=== PATIENT | female | born 1940 | race Caucasian/White ===

== ENCOUNTER 2018-03-26 05:04 | Inpatient (IN) ==
[2018-03-19 15:18] LABS: Appearance,Urine CLEAR; Bacteria,Urine 0 /hpf (0); Bilirubin,Urine NEG (NEG); Color,Urine YELLOW; Glucose,Urine (UA) NEGATIVE (NEG); Leukocyte Esterase,Urine 500 /uL (NEG); Mucus,Urine MOD /hpf (0); Protein,Urine NEG (NEG); Specific Gravity,Urine 1.015 (1.000-1.035); Urine Blood NEG mg/dL (<0.03); Urine Hyaline Cast 2 /lpf (0-2); Urine RBC 1 /hpf (0-1); Urine Squamous Epithelial Cell 3 /hpf (0-4); Urine Transitional Epi Cells < 1 /hpf (0-2); Urine WBC 19 /hpf (0-4); Urobilinogen,Urine NEG (NEG)
[2018-03-19 15:50] LABS: Basophils # (Auto) 0 K/mcL (0.0-0.3); Basophils % (Auto) 0.3 % (0.0-2.0); Eosinophils # (Auto) 0.2 K/mcL (0.0-0.7); Eosinophils % (Auto) 2.9 % (0.0-7.0); Granulocytes % (Auto) 73.2 % (38.0-78.0); Lymphocytes # (Auto) 1.2 K/mcL (1.5-4.8); Lymphocytes % (Auto) 16.1 % (15.5-49.0); Mean Cell Volume 97.5 fL (80.0-100.0); Mean Corpuscular HGB Conc 32.9 g/dL (31.0-36.0); Monocytes # (Auto) 0.6 K/mcL (0.1-0.9); Monocytes % (Auto) 7.5 % (1.0-12.0); Platelet Count 244 K/mcL (140-440); RBC 3.97 M/mcL (4.00-5.20); Red Cell Distribution Width 13.3 % (11.5-14.5)
[2018-03-19 16:04] LABS: Blood Urea Nitrogen 20 mg/dl (8-23)
[2018-03-26] MEDS ORDERED: ACETAMINOPHEN 500 MG TABLET PO SCH (07:00)
[2018-03-26] MEDS ORDERED: ceFAZolin 1 GM VIAL IV SCH (07:00)
[2018-03-26] MEDS ORDERED: CELECOXIB 200 MG CAPSULE PO SCH (07:00)
[2018-03-26] MEDS ORDERED: PREGABALIN 75 MG CAPSULE PO SCH (07:00)
[2018-03-26] MEDS ORDERED: LIDOCAINE HCL/PF 100 MG/5 ML SYRINGE IV ONE (07:25)
[2018-03-26] MEDS ORDERED: GLYCOPYRROLATE 0.2 MG/ML VIAL IV ONE (07:25)
[2018-03-26] MEDS ORDERED: PROPOFOL 200 MG/20 ML VIAL IV ONE (07:25)
[2018-03-26] MEDS ORDERED: KETAMINE 100 MG/ML ML IV ONE (07:25)
[2018-03-26] MEDS ORDERED: DEXAMETHASONE 10 MG/ML VIAL IV ONE (07:25)
[2018-03-26] MEDS ORDERED: fentaNYL 250 MCG/5 ML VIAL IV ONE (07:25)
[2018-03-26] MEDS ORDERED: ROPIVACAINE HCL/PF 30 ML VIAL IJ ONE (07:25)
[2018-03-26] MEDS ORDERED: ONDANSETRON 4 MG/2 ML VIAL IV ONE (07:25)
[2018-03-26] MEDS ORDERED: PHENYLEPHRINE 10 MG/ML VIAL IV ONE (07:25)
[2018-03-26] MEDS ORDERED: MIDAZOLAM 5 MG/5 ML VIAL IV ONE (07:25)
[2018-03-26] MEDS ORDERED: TRANEXAMIC ACID 1,000 MG/10 ML VIAL IV ONE ×2 (07:25→08:53)
[2018-03-26] MEDS ORDERED: METHOCARBAMOL 1,000 MG/10 ML VIAL IV PRN (07:55)
[2018-03-26] MEDS ORDERED: GENTAMICIN SULFATE 800 MG/20 ML VIAL IR ONE (07:55)
[2018-03-26] MEDS ORDERED: BENZOCAINE/MENTHOL 1 LOZENGE PO PRN ×2 (07:55→08:53)
[2018-03-26] MEDS ORDERED: LACTATED RINGERS 250 ML IV PRN (07:55)
[2018-03-26] MEDS ORDERED: FLUMAZENIL 0.1 MG/ML ML IV PRN (07:55)
[2018-03-26] MEDS ORDERED: NALOXONE HCL 0.4 MG/ML VIAL IV PRN (07:55)
[2018-03-26] MEDS ORDERED: MEPERIDINE 25 MG/ML SYRINGE IV PRN (07:55)
[2018-03-26] MEDS ORDERED: IPRATROPIUM/ALBUTEROL 3 ML AMPUL.NEB NEB PRN (07:55)
[2018-03-26] MEDS ORDERED: ONDANSETRON 4 MG/2 ML VIAL IV PRN ×2 (07:55→08:53)
[2018-03-26] MEDS ORDERED: fentaNYL 100 MCG/2 ML VIAL IV PRN (07:55)
[2018-03-26] MEDS ORDERED: LACTATED RINGERS 1,000 ML IV SCH (08:00)
[2018-03-26] MEDS ORDERED: BISACODYL 10 MG SUPP.RECT PR PRN (08:53)
[2018-03-26] MEDS ORDERED: POLYETHYLENE GLYCOL 3350 17 GM PACKET PO PRN (08:53)
[2018-03-26] MEDS ORDERED: HYDROCODONE/APAP 7.5/325MG TABLET PO PRN (08:53)
[2018-03-26] MEDS ORDERED: FLEETS ADULT ENEMA PR PRN (08:53)
[2018-03-26] MEDS ORDERED: MAGNESIUM HYDROXIDE 30 ML ORAL.SUSP PO PRN (08:53)
[2018-03-26] MEDS ORDERED: TEMAZEPAM 15 MG CAPSULE PO PRN (08:53)
--- NOTE | 2018-03-26 08:53 | Brief Operative Note ---
Date of procedure: 03/26/18 Pre-op diagnosis: Left shoulder dja rca Post-op diagnosis: same Procedure: left reverse tsa and bicep tendon tear Grafts/Implants: Yes Anesthesia: GETA Complications: none Surgeon: Mauri Coleman Reconciliation Analyst: Ramo Steward Estimated blood loss (cc): 50 Specimens Removed/Pathology: none sent Condition: stable Disposition: PACU
--- NOTE | 2018-03-26 10:02 | Operative Note ---
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 PROCEDURE: Left reverse total shoulder. SURGEON: Mauri Coleman M.D. LEARNING AND DEVELOPMENT ASSOCIATE: Ramo Steward PA-C. ANESTHESIA: General LMA anesthesia. COMPLICATIONS: None. DESCRIPTION OF PROCEDURE: The patient was brought to the operating room and put to sleep with general LMA anesthesia. Once asleep, the patient had the left shoulder sterilely prepped and draped in the usual sterile fashion. Once done, we then made a deltopectoral approach after a timeout had been performed and Ioban placed over the skin. We exposed the shoulder joint, retracting the deltoid laterally and preserving the cephalic vein. Once done, we then released the subscap and biceps tendon remnant, and this was repaired to the pec major. The biceps tendon was repaired to the pec major with #1 FiberWire with good repair. We then subluxed the humeral head after performing a capsule release of the inferior capsule and removing the spurs. We made the neck cut of the humerus using a humeral guide with 20 degrees of retroversion. Once cut, the bony fragment was removed. A protective plate on the head was placed, and this was subluxed posteriorly. We then performed a 360-degree capsule release around the glenoid using retractors and removing the labrum. We placed the pin centrally and then the guide was used to ream at 10 degrees of inclination and this prepared a nice bony bed. A central screw was then placed with the Metaglene 32 mm in length, a 6.5 mm screw centrally. The peripheral screws were 4.5 and they were 32, 36 and 36 in length. Good purchase achieved. We then placed a 36 mm ball with 2 mm of offset and 2 mm of eccentricity. Once done, we then tapped the humeral head into place, the press fit over the Metaglene. Once this was done, we broached up to the size of 11 on the stem. She had significant bone loss or osteopenia. Because of this soft bone, we did place cement in the distal portion of the canal with a neutral neck length. Our neutral poly liner seemed to be the appropriate thickness and tension with 1 mm of shuck on the shuck test. Once done, we then placed the cement down in the canal after irrigating and positioned the size 11 stem which was a porous ingrowth proximally, and we cemented the distal portion to hold this in place and bone grafted around the proximal portion prior to inserting the stem. Once this was pressed to the same level of the trial, we then waited for the cement to dry. Once dry, we then trialed the standard poly. This was the appropriate tension again, and we implanted the final implant. The final poly liner was placed. The patient tolerated this well without complication. Once the final implant was placed, we then reduced the shoulder and this gave good tension. We irrigated thoroughly and then closed the deltopectoral approach with #1 Stratafix and the skin was closed with #1 Stratafix and adhesive closure. The patient tolerated this well. A sterile bandage was applied and a sling was applied. RBBrett:fan Job ID: [id number] Doc ID: [id number] Mauri Coleman MD
--- NOTE | 2018-03-26 10:06 | XRay Report ---
HISTORY: Postop shoulder replacement FINDINGS: There is a well-positioned reverse shoulder prosthesis. No fracture is present and there are no abnormal soft tissue calcifications. Arthritis is present throughout the cervical and thoracic spine. IMPRESSION: Well-positioned left shoulder prosthesis Interpreted and Authenticated by: Jaswant Lovett 03/26/18
[2018-03-26] MEDS: CITALOPRAM 20 MG TABLET PO SCH (12:05)
[2018-03-26] MEDS: ZAFIRLUKAST 20 MG TABLET PO SCH ×2 (12:14→20:43)
[2018-03-26] MEDS: BENDAMUSTINE PO SCH (12:16)
[2018-03-26] MEDS: 0.45 % SODIUM CHLORIDE 1,000 ML IV SCH ×2 (12:16→19:02)
[2018-03-26] MEDS: DOCUSATE SODIUM 100 MG CAPSULE PO SCH ×2 (12:16→20:41)
[2018-03-26] MEDS: HYDROmorphone 2 MG TABLET PO PRN (13:06)
[2018-03-26] MEDS: 0.9 % SODIUM CHLORIDE 10 ML SYRINGE IV SCH ×2 (14:26→20:43)
[2018-03-26] MEDS: ceFAZolin 1 GM VIAL IV SCH ×2 (16:02→23:24)
[2018-03-26] MEDS: ACETAMINOPHEN 325 MG TABLET PO PRN (17:23)
[2018-03-26] MEDS: SULFAMETHOXAZOLE/TRIMETHOPRIM 1 TABLET PO SCH (20:40)
[2018-03-26] MEDS: FLUTICASONE/SALMETEROL 250/50 INHALER #14 INH SCH (20:41)
[2018-03-26] MEDS: SENNOSIDES 1 TABLET PO SCH (20:43)
[2018-03-27] MEDS: HYDROmorphone 2 MG TABLET PO PRN ×5 (02:26→21:33)
[2018-03-27] MEDS: HYDROmorphone 2 MG/ML VIAL IV PRN ×2 (02:27→04:06)
[2018-03-27] MEDS: 0.9 % SODIUM CHLORIDE 10 ML SYRINGE IV SCH ×3 (04:07→21:35)
--- NOTE | 2018-03-27 07:44 | Orthopedic Progress Note ---
Subjective Patient information: Note initiated : 03/27/18 at 7:43 am Service Date, if different from initiated Date: [] Patient: Janet Winn 77 y/o F admitted on 03/26/18 for Left Reverse Total Shoulder Arthroplasty with. Chief Complaint: Pt is stable this morning on post operative day 1 without any significant concerns or complaints. Patients vital signs have remained stable. Patients dressing is dry and is grossly intact from a neur ovascular and motor standpoint. Patients 10 point ROS is otherwise negative. [] Objective Vital signs: Vital Signs Temp Pulse Resp BP BP Pulse Ox 03/27/18 03:18 97.4 F 71 18 125/55 92 03/26/18 23:24 98.0 F 72 18 119/64 93 03/26/18 19:31 98.3 F 73 20 119/52 93 03/26/18 15:41 97.4 F 85 97 03/26/18 12:06 79 92/57 96 03/26/18 11:50 78 123/52 95 03/26/18 11:35 81 127/57 97 03/26/18 11:20 75 121/59 97 03/26/18 11:05 119/60 96 03/26/18 10:50 111/58 91 03/26/18 10:35 118/63 97 03/26/18 10:20 110/56 98 03/26/18 10:05 117/62 98 03/26/18 09:57 97.4 F 83 14 132/52 99 03/26/18 09:43 97.2 F 77 13 127/51 100 03/26/18 09:28 97.5 F 77 12 112/51 100 03/26/18 09:13 78 13 125/85 100 03/26/18 09:07 75 15 131/44 100 03/26/18 09:03 97.6 F 73 15 130/54 100 Intake and Output 03/26/18 03/27/18 03/27/18 21:59 05:59 13:59 Intake Total 1050 Output Total 250 1125 Balance -250 -75 Intake: IV 1000 Sodium Chloride 0.45% 1,000 ml 1000 @ 100 mls/hr IV .Q10H [facility] Rx#: [id number] Oral 50 Output: Void Amount 250 1125 Other: Urine Appearance Clear Urine Color Straw Urine Odor Strong Weight 210 lb 11.2 oz Intake & Output: Intake & Output 03/26/18 03/27/18 03/27/18 21:59 05:59 13:59 Intake Total 1050 Output Total 250 1125 Balance -250 -75 Weight 210 lb 11.2 oz Intake: IV 1000 Sodium Chloride 0.45% 1,000 ml 1000 @ 100 mls/hr IV .Q10H [facility] Rx#: [id number] Oral 50 Output: Void Amount 250 1125 Other: Urine Appearance Clear Urine Color Straw Urine Odor Strong Incision: Yes healing Incision clean and dry: Yes Dressing: Yes clean Neurological exam IM: Yes motor sensory intact, Yes neurovascular intact - Labs CBC & BMP: 03/19/18 13:52 03/19/18 13:52 Labs: 03/19/18 13:52 Hgb 12.8 Hct 38.7 Assessment and Plan (1) History of reverse total replacement of left shoulder joint The patient has been educated regarding dressing care, Physical Therapy recommendations, home exercises, restrictions, and follow up appointments. The patient has had all necessary DME prescribed. The patient has remained relatively stable during their hospital course. Leave Dermabond patch intact until followup Status: Acute
--- NOTE | 2018-03-27 07:47 | Discharge Summary ---
Ortho Discharge - TSA - Patient Instructions Diet: Regular Diet Activity: activity as tolerated, weight bearing as tolerated Total Shoulder Protocol: Leave immobilizer in place except for bathing and ROM. Abduction pillow. Continue to wear sling until seen by physician. Codman Pendulum : These exercises use momentum produced by your body to move your shoulder joint. Bend your knees and shift your weight to your front leg, then back, allowing your arm to swing in the same directions. Using the same technique, alternately shift your weight between your right and left legs, allowing your arm to swing from side to side. These exercises are also performed in counterclockwise and clockwise circular motions. Typically these exercises are performed several times per day, for a set number repetitions or minutes, such as 20 times in a row or 5 minutes at a time. Dressing Care: May shower in 2 days - Problem Maintenance (1) History of reverse total replacement of left shoulder joint Status: Acute - Follow Up Plan Follow Up Appointments: Ramo Steward PA-C [Physician [employer]] - 04/10/18 1:40 pm Disposition: Home, Self-Care Prognosis: Good Rehab Potential: Good I certify that the patient requires SNF services: No Overall status at discharge: patient is progressing back to baseline - Orders For Discharge Prescriptions: Docusate Sodium [Colace] 100 mg PO BID #60 capsule HYDROmorphone [Dilaudid] 4 mg PO Q4 #60 vial
[2018-03-27] MEDS: OMEPRAZOLE 20 MG CAPSULE PO SCH (07:55)
[2018-03-27] MEDS: BENDAMUSTINE PO SCH (08:25)
[2018-03-27] MEDS ORDERED: ZAFIRLUKAST 20 MG TABLET PO SCH (09:00)
[2018-03-27] MEDS: ZAFIRLUKAST 20 MG TABLET PO SCH ×2 (09:53→16:36)
[2018-03-27] MEDS: SULFAMETHOXAZOLE/TRIMETHOPRIM 1 TABLET PO SCH ×2 (09:54→21:33)
[2018-03-27] MEDS: CITALOPRAM 20 MG TABLET PO SCH (09:54)
[2018-03-27] MEDS: FLUTICASONE/SALMETEROL 250/50 INHALER #14 INH SCH ×2 (09:54→21:33)
[2018-03-27] MEDS: DOCUSATE SODIUM 100 MG CAPSULE PO SCH ×2 (09:54→21:33)
[2018-03-27] MEDS: ACETAMINOPHEN 325 MG TABLET PO PRN (16:35)
[2018-03-27] MEDS: CELECOXIB 100 MG CAPSULE PO SCH (16:37)
[2018-03-27] MEDS: CETIRIZINE 10 MG TABLET PO SCH (16:42)
[2018-03-27] MEDS: SENNOSIDES 1 TABLET PO SCH (21:33)
[2018-03-28] MEDS: HYDROmorphone 2 MG TABLET PO PRN ×4 (02:26→16:12)
[2018-03-28] MEDS: ACETAMINOPHEN 325 MG TABLET PO PRN ×2 (04:08→17:42)
[2018-03-28] MEDS: 0.9 % SODIUM CHLORIDE 10 ML SYRINGE IV SCH ×3 (06:43→22:17)
[2018-03-28] MEDS: OMEPRAZOLE 20 MG CAPSULE PO SCH (06:43)
--- NOTE | 2018-03-28 07:04 | Orthopedic Progress Note ---
Subjective Patient information: Note initiated : 03/28/18 at 7:02 am Service Date, if different from initiated Date: [] Patient: Janet Winn 77 y/o F admitted on 03/26/18 for Left Reverse Total Shoulder Arthroplasty with. Chief Complaint: [felt light headed and dizzy when ambulating and is week getting out of bed.] Objective Vital signs: Vital Signs Temp Pulse Resp BP Pulse Ox 03/28/18 04:15 99.6 F H 87 12 143/65 93 03/27/18 23:25 98.8 F 81 12 132/60 94 03/27/18 19:18 97.3 F 75 12 131/60 93 03/27/18 15:13 98.3 F 83 16 138/60 94 03/27/18 11:35 98.3 F 64 16 126/62 94 03/27/18 07:44 98.0 F 68 12 136/62 90 Intake and Output 03/27/18 03/28/18 03/28/18 21:59 05:59 13:59 Intake Total 575 1020 Output Total 900 1100 Balance -325 -80 Intake: Oral 575 1020 Output: Void Amount 900 1100 Other: Meal Dinner Percent of Meal Consumed 50% Feeding Ability Independent Weight 210 lb 6.4 oz Intake & Output: Intake & Output 03/27/18 03/28/18 03/28/18 21:59 05:59 13:59 Intake Total 575 1020 Output Total 900 1100 Balance -325 -80 Weight 210 lb 6.4 oz Intake: Oral 575 1020 Output: Void Amount 900 1100 Other: Meal Dinner Percent of Meal Consumed 50% Feeding Ability Independent Incision: Yes healing Incision clean and dry: Yes Weight bearing status: full Neurological exam IM: Yes oriented X3 (discharge to snf in am) - Labs CBC & BMP: 03/19/18 13:52 03/19/18 13:52 Labs: 03/19/18 13:52 Hgb 12.8 Hct 38.7
[2018-03-28] MEDS: ZAFIRLUKAST 20 MG TABLET PO SCH (07:52)
[2018-03-28] MEDS: FLUTICASONE/SALMETEROL 250/50 INHALER #14 INH SCH ×2 (07:52→22:18)
[2018-03-28] MEDS: CELECOXIB 100 MG CAPSULE PO SCH ×2 (07:53→17:44)
[2018-03-28] MEDS: CITALOPRAM 20 MG TABLET PO SCH (08:36)
[2018-03-28] MEDS: CETIRIZINE 10 MG TABLET PO SCH (08:36)
[2018-03-28] MEDS: SULFAMETHOXAZOLE/TRIMETHOPRIM 1 TABLET PO SCH ×2 (08:36→22:16)
[2018-03-28] MEDS: DOCUSATE SODIUM 100 MG CAPSULE PO SCH ×2 (08:36→22:16)
[2018-03-28] MEDS: BENDAMUSTINE PO SCH (08:37)
[2018-03-28] MEDS: SENNOSIDES 1 TABLET PO SCH (22:16)
[2018-03-29] MEDS: CELECOXIB 100 MG CAPSULE PO SCH (07:26)
[2018-03-29] MEDS: 0.9 % SODIUM CHLORIDE 10 ML SYRINGE IV SCH (07:26)
[2018-03-29] MEDS: OMEPRAZOLE 20 MG CAPSULE PO SCH (07:26)
[2018-03-29] MEDS: ZAFIRLUKAST 20 MG TABLET PO SCH (07:26)
[2018-03-29] MEDS: ACETAMINOPHEN 325 MG TABLET PO PRN (08:05)
[2018-03-29] MEDS: CITALOPRAM 20 MG TABLET PO SCH (10:38)
[2018-03-29] MEDS: CETIRIZINE 10 MG TABLET PO SCH (10:38)
[2018-03-29] MEDS: BENDAMUSTINE PO SCH (10:38)
[2018-03-29] MEDS: DOCUSATE SODIUM 100 MG CAPSULE PO SCH (10:38)
[2018-03-29] MEDS: FLUTICASONE/SALMETEROL 250/50 INHALER #14 INH SCH (10:38)
[2018-03-29] MEDS: SULFAMETHOXAZOLE/TRIMETHOPRIM 1 TABLET PO SCH (10:40)
[2018-03-29] MEDS: HYDROmorphone 2 MG TABLET PO PRN (11:28)
--- NOTE | 2018-04-19 09:12 | Discharge Summary ---
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 PROCEDURE: Left reverse total shoulder. HOSPITAL COURSE: Patient's hospital course remained stable. She did not progress as quickly as we had hoped in terms of stability, ambulation, and there were other concerns with living alone. She was not able to meet the discharge criteria to home and met the criteria for [facility] facility transfer following a 3-day stay in the hospital. She received our standard patient education materials in regards to medications, wound care, followup recommendations and physical therapy guidelines. Her physical exam remained stable on discharge, and she was discharged to [facility] facility. BAP:fan Job ID: [id number] Doc ID: [id number] Ramo Steward PA-C
== END 2018-03-29 13:30 | disposition home or self-care (01) | DRG 483 ==
LOC: MEDSUR 05:04
PROVIDERS: ADMIT Orthopaedic Surgery; ATTEND Orthopaedic Surgery

== ENCOUNTER 2025-02-18 13:06 | Inpatient (IN) ==
[2025-02-18] MEDS ORDERED: IOPAMIDOL 100 ML BOTTLE IV ONE (13:07)
[2025-02-18] MEDS: LACTATED RINGERS 1,000 ML IV ONE (13:50)
[2025-02-18 14:20] LABS: Basophils # (Auto) 0.01 K/mcL (0.00-0.30); Basophils % (Auto) 0.1 % (0.0-2.0); Eosinophils # (Auto) 0.01 K/mcL (0.00-0.70); Eosinophils % (Auto) 0.1 % (0.0-7.0); Hematocrit 42.7 % (34.1-44.9); Hemoglobin 13.9 g/dL (11.2-15.7); Lymphocytes # (Auto) 0.97 K/mcL (1.50-4.80); Lymphocytes % (Auto) 5.4 % (15.5-49.0); Mean Corpuscular HGB Conc 32.6 g/dL (31.0-36.0); Monocytes # (Auto) 1.54 K/mcL (0.10-0.90); Monocytes % (Auto) 8.6 % (1.0-12.0); Neutrophils % (Auto) 85.3 % (38.0-78.0); Platelet Count 302 K/mcL (140-440); RBC 4.48 M/mcL (3.59-5.38); WBC 17.9 K/mcL (4.5-11.0)
[2025-02-18 14:38] LABS: ALT/SGPT 17 U/L (<40); AST/SGOT 32 U/L (<32); Albumin 3.7 gm/dL (3.2-5.2); Albumin/Globulin Ratio 1.0 (1.0-2.3); Alkaline Phosphatase 123 U/L (39-117); Anion Gap 17.0 (8.0-16.0); Bilirubin,Total 0.9 mg/dL (0.1-1.0); Blood Urea Nitrogen 20 mg/dL (8-23); Calcium 9.8 mg/dL (8.6-10.4); Carbon Dioxide 23 mmol/L (22-30); Chloride 103 mmol/L (96-108); Globulin 3.6 gm/dL (2.2-3.7); Glucose 160 mg/dL (70-105); Potassium 3.2 mmol/L (3.3-5.1); Sodium 143 mmol/L (133-145)
[2025-02-18 15:21] LABS: Creatine Kinase 429 U/L (24-170)
[2025-02-18] MEDS: 0.9 % SODIUM CHLORIDE 500 ML IV ONE ×2 (15:50→18:22)
[2025-02-18 16:00] LABS: Bacteria,Urine Many /hpf (0); Bilirubin,Urine Negative (Negative); Color,Urine YELLOW; Glucose,Urine (UA) NEGATIVE (Negative); Ketones,Urine >=80 mg/dL (Negative); Leukocyte Esterase,Urine MODERATE /uL (Negative); PH,Urine 6.0 (5.0-9.0); Protein,Urine 100 mg/dL (Negative); Specific Gravity,Urine >= 1.030 (1.000-1.035); Urobilinogen,Urine 1.0 mg/dL
[2025-02-18] MEDS: cefTRIAXone 1 GM VIAL IV ONE (16:46)
[2025-02-18] MEDS: POTASSIUM CHLORIDE 20 MEQ TABLET PO ONE (16:46)
[2025-02-18] MEDS ORDERED: SENNOSIDES 1 TABLET PO PRN (20:39)
[2025-02-18] MEDS ORDERED: MAG HYDROX/AL HYDROX/SIMETH 30 ML ORAL.SUSP PO PRN (20:39)
[2025-02-18] MEDS ORDERED: POLYETHYLENE GLYCOL 3350 17 GM PACKET PO PRN (20:39)
[2025-02-18] MEDS ORDERED: ONDANSETRON 4 MG/2 ML VIAL IV PRN (20:39)
[2025-02-18] MEDS: HEPARIN 5,000 UNIT/ML VIAL SQ SCH (21:38)
[2025-02-18] MEDS: DOCUSATE SODIUM 100 MG CAPSULE PO SCH (21:38)
[2025-02-18] MEDS: LACTATED RINGERS 1,000 ML IV SCH (21:38)
[2025-02-18] MEDS: 0.9 % SODIUM CHLORIDE 10 ML SYRINGE IV SCH (21:39)
[2025-02-19 00:26] LABS: Potassium 4.0 mmol/L (3.3-5.1)
[2025-02-19 06:49] LABS: ALT/SGPT 37 U/L (<40); AST/SGOT 73 U/L (<32); Albumin 3.3 gm/dL (3.2-5.2); Albumin/Globulin Ratio 1.1 (1.0-2.3); Alkaline Phosphatase 144 U/L (39-117); Anion Gap 12.0 (8.0-16.0); Bilirubin,Direct 0.3 mg/dL (<0.3); Bilirubin,Total 0.5 mg/dL (0.1-1.0); Blood Urea Nitrogen 24 mg/dL (8-23); Calcium 9.2 mg/dL (8.6-10.4); Carbon Dioxide 24 mmol/L (22-30); Chloride 106 mmol/L (96-108); Creatine Kinase 904 U/L (24-170); Globulin 2.9 gm/dL (2.2-3.7); Glucose 123 mg/dL (70-105); Phosphorous 1.9 mg/dL (2.5-4.5); Potassium 3.4 mmol/L (3.3-5.1); Sodium 142 mmol/L (133-145); Triglycerides 95 mg/dL (<150); Uric Acid 3.8 mg/dL (2.5-8.0)
[2025-02-19 07:02] LABS: Basophils # (Auto) 0.03 K/mcL (0.00-0.30); Basophils % (Auto) 0.2 % (0.0-2.0); Eosinophils # (Auto) 0.18 K/mcL (0.00-0.70); Eosinophils % (Auto) 1.3 % (0.0-7.0); Hematocrit 34.7 % (34.1-44.9); Hemoglobin 11.3 g/dL (11.2-15.7); Lymphocytes # (Auto) 1.74 K/mcL (1.50-4.80); Lymphocytes % (Auto) 12.2 % (15.5-49.0); Mean Corpuscular HGB Conc 32.6 g/dL (31.0-36.0); Monocytes # (Auto) 1.56 K/mcL (0.10-0.90); Monocytes % (Auto) 10.9 % (1.0-12.0); Neutrophils % (Auto) 75.2 % (38.0-78.0); Platelet Count 268 K/mcL (140-440); RBC 3.59 M/mcL (3.59-5.38); WBC 14.3 K/mcL (4.5-11.0)
[2025-02-19] MEDS: OMEPRAZOLE 20 MG CAPSULE PO SCH (08:06)
[2025-02-19] MEDS: PANTOPRAZOLE 40 MG TABLET PO SCH (08:21)
[2025-02-19] MEDS ORDERED: cefTRIAXone 1 GM VIAL IV SCH (09:00)
[2025-02-19] MEDS: cefTRIAXone 2 GM in DEXTROSE 5% IN WATER 50 ML IV SCH (10:42)
[2025-02-19] MEDS: IPRATROPIUM/ALBUTEROL 3 ML AMPUL.NEB NEB PRN (12:09)
[2025-02-19] MEDS: MELATONIN 3 MG TABLET PO PRN (20:28)
[2025-02-19] MEDS: ACETAMINOPHEN 325 MG TABLET PO PRN (20:29)
[2025-02-19] MEDS: LACTATED RINGERS 500 ML IV ONE (23:04)
[2025-02-19] MEDS: POTASSIUM PHOSPHATE 66 MEQ/15 ML VIAL IV ONE (23:47)
[2025-02-19] MEDS: POTASSIUM PHOSPHATE 40 MEQ in DEXTROSE 5% IN WATER 500 ML IV ONE (23:57)
[2025-02-20] MEDS: LACTATED RINGERS 1,000 ML IV SCH (00:09)
[2025-02-20 06:47] LABS: Basophils # (Auto) 0.03 K/mcL (0.00-0.30); Basophils % (Auto) 0.4 % (0.0-2.0); Eosinophils # (Auto) 0.44 K/mcL (0.00-0.70); Eosinophils % (Auto) 5.4 % (0.0-7.0); Hematocrit 29.2 % (34.1-44.9); Hemoglobin 9.5 g/dL (11.2-15.7); Lymphocytes # (Auto) 1.23 K/mcL (1.50-4.80); Lymphocytes % (Auto) 15.0 % (15.5-49.0); Mean Corpuscular HGB Conc 32.5 g/dL (31.0-36.0); Monocytes # (Auto) 1.13 K/mcL (0.10-0.90); Monocytes % (Auto) 13.8 % (1.0-12.0); Neutrophils % (Auto) 65.0 % (38.0-78.0); Platelet Count 214 K/mcL (140-440); RBC 3.01 M/mcL (3.59-5.38); WBC 8.2 K/mcL (4.5-11.0)
[2025-02-20 07:08] LABS: C-Reactive Protein 11.9 mg/dL (0.03-0.80); Creatine Kinase 881.0 U/L (24-170)
[2025-02-20 07:08] LABS: ALT/SGPT 119 U/L (<40); AST/SGOT 185 U/L (<32); Albumin 2.9 gm/dL (3.2-5.2); Albumin/Globulin Ratio 1.2 (1.0-2.3); Alkaline Phosphatase 203 U/L (39-117); Anion Gap 13.0 (8.0-16.0); Bilirubin,Direct 0.3 mg/dL (<0.3); Bilirubin,Total 0.4 mg/dL (0.1-1.0); Blood Urea Nitrogen 21 mg/dL (8-23); Calcium 8.5 mg/dL (8.6-10.4); Carbon Dioxide 22 mmol/L (22-30); Chloride 103 mmol/L (96-108); Globulin 2.5 gm/dL (2.2-3.7); Glucose 106 mg/dL (70-105); Phosphorous 3.9 mg/dL (2.5-4.5); Potassium 3.5 mmol/L (3.3-5.1); Sodium 138 mmol/L (133-145); Triglycerides 82 mg/dL (<150); Uric Acid 3.1 mg/dL (2.5-8.0)
[2025-02-20] MEDS: CETIRIZINE 10 MG TABLET PO PRN (08:16)
[2025-02-20] MEDS: VIT A,C & E/LUTEIN/MINERALS TABLET PO SCH (08:32)
[2025-02-20] MEDS: CITALOPRAM 20 MG TABLET PO SCH (08:33)
[2025-02-20] MEDS: METHOCARBAMOL 750 MG TABLET PO PRN (10:09)
[2025-02-20] MEDS: Fluticasone-Umeclidin-Vilanter [Trelegy Ellipta] 200MCG-62.5MCG-25MCG Inhaler INH SCH (10:12)
[2025-02-20] MEDS: ZAFIRLUKAST 20 MG TABLET PO SCH (11:21)
[2025-02-21 06:53] LABS: ALT/SGPT 90 U/L (<40); AST/SGOT 106 U/L (<32); Albumin 2.8 gm/dL (3.2-5.2); Albumin/Globulin Ratio 1.2 (1.0-2.3); Alkaline Phosphatase 193 U/L (39-117); Anion Gap 11.0 (8.0-16.0); Bilirubin,Direct < 0.2 mg/dL (0-0.3); Bilirubin,Total 0.2 mg/dL (0.1-1.0); Blood Urea Nitrogen 11 mg/dL (8-23); Calcium 8.6 mg/dL (8.6-10.4); Carbon Dioxide 25 mmol/L (22-30); Chloride 106 mmol/L (96-108); Globulin 2.4 gm/dL (2.2-3.7); Glucose 96 mg/dL (70-105); Phosphorous 3.7 mg/dL (2.5-4.5); Potassium 3.2 mmol/L (3.3-5.1); Sodium 142 mmol/L (133-145); Triglycerides 85 mg/dL (<150); Uric Acid 2.5 mg/dL (2.5-8.0)
[2025-02-21 06:56] LABS: C-Reactive Protein 7.51 mg/dL (0.03-0.80)
[2025-02-21 07:11] LABS: Basophils # (Auto) 0.03 K/mcL (0.00-0.30); Basophils % (Auto) 0.5 % (0.0-2.0); Eosinophils # (Auto) 0.70 K/mcL (0.00-0.70); Eosinophils % (Auto) 10.8 % (0.0-7.0); Hematocrit 29.9 % (34.1-44.9); Hemoglobin 9.6 g/dL (11.2-15.7); Lymphocytes # (Auto) 1.09 K/mcL (1.50-4.80); Lymphocytes % (Auto) 16.9 % (15.5-49.0); Mean Corpuscular HGB Conc 32.1 g/dL (31.0-36.0); Monocytes # (Auto) 0.81 K/mcL (0.10-0.90); Monocytes % (Auto) 12.5 % (1.0-12.0); Neutrophils % (Auto) 58.8 % (38.0-78.0); Platelet Count 237 K/mcL (140-440); RBC 3.07 M/mcL (3.59-5.38); WBC 6.5 K/mcL (4.5-11.0)
[2025-02-21 11:38] LABS: Creatine Kinase 858 U/L (24-170)
[2025-02-21] MEDS: POTASSIUM CHLORIDE 20 MEQ TABLET PO ONE (12:18)
[2025-02-21] MEDS ORDERED: CEFDINIR 300 MG CAPSULE PO SCH (21:00)
[2025-02-22 06:07] LABS: Basophils # (Auto) 0.04 K/mcL (0.00-0.30); Basophils % (Auto) 0.5 % (0.0-2.0); Eosinophils # (Auto) 0.74 K/mcL (0.00-0.70); Eosinophils % (Auto) 8.4 % (0.0-7.0); Hematocrit 31.0 % (34.1-44.9); Hemoglobin 9.9 g/dL (11.2-15.7); Lymphocytes # (Auto) 1.34 K/mcL (1.50-4.80); Lymphocytes % (Auto) 15.2 % (15.5-49.0); Mean Corpuscular HGB Conc 31.9 g/dL (31.0-36.0); Monocytes # (Auto) 1.10 K/mcL (0.10-0.90); Monocytes % (Auto) 12.5 % (1.0-12.0); Neutrophils % (Auto) 62.9 % (38.0-78.0); Platelet Count 294 K/mcL (140-440); RBC 3.21 M/mcL (3.59-5.38); WBC 8.8 K/mcL (4.5-11.0)
[2025-02-22 06:23] LABS: C-Reactive Protein 6.16 mg/dL (0.03-0.80); Creatine Kinase 495.0 U/L (24-170)
[2025-02-22 06:25] LABS: ALT/SGPT 72 U/L (<40); AST/SGOT 72 U/L (<32); Albumin 2.9 gm/dL (3.2-5.2); Albumin/Globulin Ratio 1.1 (1.0-2.3); Alkaline Phosphatase 209 U/L (39-117); Anion Gap 10.0 (8.0-16.0); Bilirubin,Direct < 0.2 mg/dL (0-0.3); Bilirubin,Total 0.2 mg/dL (0.1-1.0); Blood Urea Nitrogen 8 mg/dL (8-23); Calcium 8.7 mg/dL (8.6-10.4); Carbon Dioxide 26 mmol/L (22-30); Chloride 103 mmol/L (96-108); Globulin 2.6 gm/dL (2.2-3.7); Glucose 102 mg/dL (70-105); Phosphorous 3.4 mg/dL (2.5-4.5); Potassium 3.4 mmol/L (3.3-5.1); Sodium 139 mmol/L (133-145); Triglycerides 113 mg/dL (<150); Uric Acid 2.4 mg/dL (2.5-8.0)
[2025-02-22] MEDS ORDERED: cefTRIAXone 1 GM VIAL IV SCH (09:00)
[2025-02-22] MEDS: cefTRIAXone 2 GM in DEXTROSE 5% IN WATER 50 ML IV SCH (10:14)
[2025-02-22] MEDS: CIPROFLOXACIN 400 MG/200 ML BAG IV ONE ×2 (14:25→14:26)
[2025-02-22] MEDS: CIPROFLOXACIN 400 MG/200 ML BAG IV SCH (23:32)
[2025-02-23 06:56] LABS: Basophils # (Auto) 0.04 K/mcL (0.00-0.30); Basophils % (Auto) 0.5 % (0.0-2.0); Eosinophils # (Auto) 0.50 K/mcL (0.00-0.70); Eosinophils % (Auto) 6.4 % (0.0-7.0); Hematocrit 30.9 % (34.1-44.9); Hemoglobin 9.8 g/dL (11.2-15.7); Lymphocytes # (Auto) 1.42 K/mcL (1.50-4.80); Lymphocytes % (Auto) 18.2 % (15.5-49.0); Mean Corpuscular HGB Conc 31.7 g/dL (31.0-36.0); Monocytes # (Auto) 1.05 K/mcL (0.10-0.90); Monocytes % (Auto) 13.5 % (1.0-12.0); Neutrophils % (Auto) 60.9 % (38.0-78.0); Platelet Count 308 K/mcL (140-440); RBC 3.12 M/mcL (3.59-5.38); WBC 7.8 K/mcL (4.5-11.0)
[2025-02-23 07:03] LABS: ALT/SGPT 56 U/L (<40); AST/SGOT 48 U/L (<32); Albumin 2.9 gm/dL (3.2-5.2); Albumin/Globulin Ratio 1.1 (1.0-2.3); Alkaline Phosphatase 180 U/L (39-117); Anion Gap 9.0 (8.0-16.0); Bilirubin,Direct < 0.2 mg/dL (0-0.3); Bilirubin,Total 0.2 mg/dL (0.1-1.0); Blood Urea Nitrogen 8 mg/dL (8-23); Calcium 8.7 mg/dL (8.6-10.4); Carbon Dioxide 30 mmol/L (22-30); Chloride 102 mmol/L (96-108); Globulin 2.6 gm/dL (2.2-3.7); Glucose 103 mg/dL (70-105); Phosphorous 3.8 mg/dL (2.5-4.5); Potassium 3.4 mmol/L (3.3-5.1); Sodium 141 mmol/L (133-145); Triglycerides 131 mg/dL (<150); Uric Acid 2.9 mg/dL (2.5-8.0)
[2025-02-23 07:07] LABS: C-Reactive Protein 6.34 mg/dL (0.03-0.80)
[2025-02-23] MEDS: POTASSIUM CHLORIDE 20 MEQ TABLET PO ONE (12:36)
[2025-02-23 12:46] LABS: Creatine Kinase 228 U/L (24-170)
[2025-02-23] MEDS: LIDOCAINE 4% TOP PATCH TOPICAL SCH (21:22)
[2025-02-23] MEDS: CIPROFLOXACIN 500 MG TABLET PO SCH (21:23)
[2025-02-24 05:22] VITALS: TEMP 98.1
[2025-02-24 06:09] LABS: Basophils # (Auto) 0.03 K/mcL (0.00-0.30); Basophils % (Auto) 0.4 % (0.0-2.0); Eosinophils # (Auto) 0.36 K/mcL (0.00-0.70); Eosinophils % (Auto) 4.6 % (0.0-7.0); Hematocrit 28.3 % (34.1-44.9); Hemoglobin 9.0 g/dL (11.2-15.7); Lymphocytes # (Auto) 1.22 K/mcL (1.50-4.80); Lymphocytes % (Auto) 15.6 % (15.5-49.0); Mean Corpuscular HGB Conc 31.8 g/dL (31.0-36.0); Monocytes # (Auto) 1.06 K/mcL (0.10-0.90); Monocytes % (Auto) 13.6 % (1.0-12.0); Neutrophils % (Auto) 65.0 % (38.0-78.0); Platelet Count 297 K/mcL (140-440); RBC 2.87 M/mcL (3.59-5.38); WBC 7.8 K/mcL (4.5-11.0)
[2025-02-24 06:36] LABS: ALT/SGPT 46 U/L (<40); AST/SGOT 36 U/L (<32); Albumin 2.8 gm/dL (3.2-5.2); Albumin/Globulin Ratio 1.1 (1.0-2.3); Alkaline Phosphatase 181 U/L (39-117); Anion Gap 10.0 (8.0-16.0); Bilirubin,Direct < 0.2 mg/dL (0-0.3); Bilirubin,Total 0.3 mg/dL (0.1-1.0); Blood Urea Nitrogen 9 mg/dL (8-23); C-Reactive Protein 8.05 mg/dL (0.03-0.80); Calcium 8.6 mg/dL (8.6-10.4); Carbon Dioxide 27 mmol/L (22-30); Chloride 101 mmol/L (96-108); Globulin 2.5 gm/dL (2.2-3.7); Glucose 107 mg/dL (70-105); Phosphorous 3.7 mg/dL (2.5-4.5); Potassium 3.5 mmol/L (3.3-5.1); Sodium 138 mmol/L (133-145); Triglycerides 114 mg/dL (<150); Uric Acid 3.0 mg/dL (2.5-8.0)
[2025-02-24 12:10] VITALS: O2SAT 95
== END 2025-02-24 12:05 | DRG 872 ==
LOC: ED 13:06 → MEDSUR 20:37
PROVIDERS: ADMIT Student in an Organized Health Care Education/Training Program; ATTEND Student in an Organized Health Care Education/Training Program